=== PATIENT | male | born 1940 | race Caucasian/White ===

== ENCOUNTER 2017-01-10 13:29 | Emergency (ER) | payer MEDICARE ==
[2017-01-10 14:23] LABS: HEMOGLOBIN 15.7 gm/dl (14.0-17.5); RED BLOOD COUNT 4.66 M/UL (4.20-5.50)
[2017-01-10 14:33] LABS: BUN/CREATININE RATIO 21 (0-10)
== END 2017-01-10 23:37 | disposition home or self-care (01) ==
LOC: ER1 13:29
PROVIDERS: Family Medicine
DX: J44.1 Chronic obstructive pulmonary disease with (acute) exacerbation (principal); I10 Essential (primary) hypertension; E78.5 Hyperlipidemia, unspecified; J98.9 Respiratory disorder, unspecified; Z87.891 Personal history of nicotine dependence; Z88.0 Allergy status to penicillin
CPT/HCPCS: 36415; 71010; 80053; 82550; 82553; 83874; 84484; 85025; 93005; 94640; 94664; 96374; 99285; J2930